=== PATIENT | male | born 1980 | race Caucasian/White ===

== ENCOUNTER 2016-07-08 21:18 | Emergency (ER) | payer SELFPAY ==
[~2016-07-08 21:18] MED LIST: AMOXICILLIN500 MG PO; BACTRIM DS1 TAB OR; BACTRIM DS1 TAB PO; BENADRYL25 MG PO; CEPHALEXIN500 MG PO; CIPRO500 MG OR; KEFLEX500 M1 PO; KEFLEX500 MG OR; LORTAB 1010 MG PO; LORTAB 5/3255 MG PO; LORTAB5 PO; MEDDOSEPAK OR; NAPROSYN500 MG PO; NO HOME MEDS; PERCOCET 5/325M1 TAB OR; PREDNISONE10 MG PO; TRAMADOL HCL50 MG OR; TRIMOX500 MG PO; TYLENOL COL OR; ULTRAM50 M1 OR; ULTRAM50 M1 PO; ULTRAM50 MG PO; [UNRECOGNIZED DRUG - REMARK]
== END 2016-07-08 21:20 | disposition left against medical advice (07) | DRG 951 ==
LOC: ED 21:18 → LWOBS 21:20
DX: Z91.19 Patient's noncompliance with other medical treatment and regimen (principal)

== ENCOUNTER 2016-07-08 21:37 | Emergency (ER) | payer SELFPAY ==
[~2016-07-08] VITALS: Ht 177.8 cm; Wt 96.4 kg
[2016-07-08 23:00] VITALS: BP 130/89
== END 2016-07-08 23:10 | disposition left against medical advice (07) | DRG 951 ==
LOC: ED 21:37 → LWOBS 23:10
DX: Z91.19 Patient's noncompliance with other medical treatment and regimen (principal)

== ENCOUNTER 2017-10-16 05:15 | Emergency (ER) | payer SELFPAY ==
[~2017-10-16] VITALS: Ht 177.8 cm; Wt 68.0 kg
[2017-10-16 06:15] LABS: HEMOGLOBIN 15.1 g/dl (14.0-18.0); IMMATURE GRANULOCYTES 0.9 % (0.0-5.0); MEAN CELL VOLUME 89.8 fL CALC (80.0-100.0); MEAN CORPUSCULAR HGB 30.8 pG CALC (26.0-32.0); MEAN CORPUSCULAR HGB CONC 34.3 g/L CALC (32.0-36.0); NEUT# 5.41 thou/uL (1.82-7.42); RED BLOOD COUNT 4.9 mill/uL (4.70-6.10); RED CELL DISTRI WIDTH 12.6 % (11.5-15.5)
[2017-10-16 06:31] LABS: ALBUMIN 4.1 g/dL (3.2-5.0); ALKALINE PHOSPHATASE 67 u/l (38-126); AMYLASE 85 u/l (30-110); ANION GAP 14 (6-22 (CALC)); BILIRUBIN, TOTAL 0.4 mg/dL (0.0-1.4); BUN 12 mg/dL (9-20); BUN/CREATININE RATIO 18 (12-20 (CALC)); CARBON DIOXIDE 26 mmol/l (22-30); CHLORIDE 104 mmol/l (95-108); CREATININE 0.7 mg/dL (0.7-1.3); GFR > 60 ML/MIN (>=60 (CALC)); GFR FOR AFR.AMER. > 60 ML/MIN (>=60 (CALC)); LIPASE 507 u/l (23-300); POTASSIUM 4.3 mmol/l (3.5-5.1); SGOT/AST 31 u/l (17-59); SGPT/ALT 38 u/l (21-72); SODIUM 140 mmol/l (137-146); TOTAL PROTEIN 6.9 g/dL (6.3-8.2)
[2017-10-16 06:41] LABS: URINE BILIRUBIN - DIPSTICK NEGATIVE (NEGATIVE); URINE BLOOD DIPSTICK NEGATIVE (NEGATIVE); URINE CLARITY CLEAR; URINE COLOR YELLOW; URINE GLUCOSE - DIPSTICK NEGATIVE (NEGATIVE); URINE KETONE NEGATIVE (NEGATIVE); URINE LEUK ESTERASE NEGATIVE (NEGATIVE); URINE NITRITE - DIPSTICK NEGATIVE (Negative); URINE PROTEIN - DIPSTICK NEGATIVE (NEG-TRACE); URINE SPECIFIC GRAVITY <=1.005; URINE UROBILINOGEN - DIPSTICK 0.2 E.U./dL (0.2)
[2017-10-16] MEDS ORDERED: ONDANSETRON4 MG PO (07:38)
[2017-10-16] MEDS ORDERED: BACTRIM DS1 TAB PO (07:38)
[2017-10-16 07:48] VITALS: BP 127/72
== END 2017-10-16 08:33 | disposition home or self-care (01) | DRG 440 ==
LOC: ED 05:15
PROVIDERS: Emergency Medicine
DX: K85.90 Acute pancreatitis without necrosis or infection, unspecified (principal); L03.012 Cellulitis of left finger
CPT/HCPCS: Q9967; S0164

== ENCOUNTER 2017-12-21 16:07 | Emergency (ER) | payer SELFPAY ==
[~2017-12-21] VITALS: Ht 177.8 cm; Wt 69.0 kg
[~2017-12-21 16:07] MED LIST changes: +ONDANSETRON4 MG PO
[2017-12-21] MEDS ORDERED: BACTRIM DS1 TAB PO ×2 (16:25→17:04)
[2017-12-21] MEDS ORDERED: CEPHALEXIN500 MG PO (17:04)
[2017-12-21] MEDS ORDERED: MUPIROCIN2 % EX (17:04)
[2017-12-21 17:14] VITALS: BP 153/92
== END 2017-12-21 17:15 | disposition home or self-care (01) | DRG 603 ==
LOC: ED 16:07
DX: L03.113 Cellulitis of right upper limb (principal); B95.61 Methicillin susceptible Staphylococcus aureus infection as the cause of diseases classified elsewhere

== ENCOUNTER 2018-01-08 07:02 | Emergency (ER) | payer SELFPAY ==
[~2018-01-08] VITALS: Ht 177.8 cm; Wt 70.0 kg
[~2018-01-08 07:02] MED LIST changes: +MUPIROCIN2 % EX
[2018-01-08] MEDS ORDERED: TORADOL PO (08:25)
[2018-01-08] MEDS ORDERED: FLEXERIL PO (08:25)
[2018-01-08 08:28] VITALS: BP 122/77
== END 2018-01-08 08:32 | disposition home or self-care (01) | DRG 204 ==
LOC: ED 07:02
DX: R07.81 Pleurodynia (principal); W19.XXXA Unspecified fall, initial encounter

== ENCOUNTER 2019-04-15 | Emergency (ER) | payer SELFPAY ==
[~2019-04-15] MED LIST changes: +FLEXERIL PO; +TORADOL PO
[2019-04-15] MEDS ORDERED: IBUPROFEN600 MG PO (02:18)
[2019-04-15] MEDS ORDERED: ORPHENADRINE100 MG PO (02:18)
== END 2019-04-15 03:28 | disposition home or self-care (01) | DRG 313 ==
DX: R07.89 Other chest pain (principal)

== ENCOUNTER 2020-07-17 18:07 | Emergency (ER) | payer SELFPAY ==
[~2020-07-17 18:07] MED LIST changes: +IBUPROFEN600 MG PO; +ORPHENADRINE100 MG PO
[2020-07-17] MEDS ORDERED: PERCOCET 5/325M1 TAB PO (19:39)
[2020-07-17 19:54] VITALS: BP 128/72
== END 2020-07-17 20:00 | disposition home or self-care (01) | DRG 563 ==
LOC: ED 18:07
PROC: 2W3QX1Z Immobilization of Right Lower Leg using Splint (ICD-10-PCS; principal; 2020-07-17)
DX: S82.51XA Displaced fracture of medial malleolus of right tibia, initial encounter for closed fracture (principal); W20.8XXA Other cause of strike by thrown, projected or falling object, initial encounter; Y92.009 Unspecified place in unspecified non-institutional (private) residence as the place of occurrence of the external cause

== ENCOUNTER 2020-08-22 04:50 | Emergency (ER) | payer SELFPAY ==
[~2020-08-22] VITALS: Ht 177.8 cm; Wt 79.5 kg
[~2020-08-22 04:50] MED LIST changes: +PERCOCET 5/325M1 TAB PO
[2020-08-22] MEDS ORDERED: DOXYCYCL HYC100 MG PO (05:22)
[2020-08-22] MEDS ORDERED: VOLTAREN75 MG PO (05:22)
[2020-08-22] MEDS ORDERED: TRAMADOL HCL50 MG PO (05:22)
[2020-08-22 06:47] VITALS: BP 135/78
== END 2020-08-22 06:48 | disposition home or self-care (01) | DRG 558 ==
LOC: ED 04:50
DX: M71.161 Other infective bursitis, right knee (principal); S82.891D Other fracture of right lower leg, subsequent encounter for closed fracture with routine healing; X58.XXXD Exposure to other specified factors, subsequent encounter

== ENCOUNTER 2020-10-26 19:20 | Emergency (ER) | payer SELFPAY ==
[~2020-10-26 19:20] MED LIST changes: +DOXYCYCL HYC100 MG PO; +TRAMADOL HCL50 MG PO; +VOLTAREN75 MG PO
[2020-10-26] MEDS ORDERED: PENICILLN VK500 MG PO (19:52)
[2020-10-26 19:58] VITALS: BP 143/89
== END 2020-10-26 20:05 | disposition home or self-care (01) | DRG 158 ==
LOC: ED 19:20
DX: K05.10 Chronic gingivitis, plaque induced (principal); M84.68XA Pathological fracture in other disease, other site, initial encounter for fracture; K02.9 Dental caries, unspecified

== ENCOUNTER 2022-02-14 09:06 | Emergency (ER) | payer OTHER ==
[~2022-02-14 09:06] MED LIST changes: +PENICILLN VK500 MG PO
== END 2022-02-14 09:30 | disposition home or self-care (01) | DRG 951 ==
LOC: ED 09:06 → LWOBS 09:30
DX: Z53.21 Procedure and treatment not carried out due to patient leaving prior to being seen by health care provider (principal)

== ENCOUNTER 2022-04-27 04:00 | Emergency (ER) | payer OTHER ==
[~2022-04-27] VITALS: Ht 177.8 cm; Wt 72.7 kg
[2022-04-27 04:53] LABS: BASO% 0.2 % (0-3); EOS% 0.9 % (0-8); HEMATOCRIT 44.1 % (39.0-50.0); HEMOGLOBIN 15.1 g/dl (14.0-18.0); IMMATURE GRANULOCYTES 0.3 % (0.0-5.0); LYMPH% 19.5 % (15-41); MEAN CORPUSCULAR HGB 30.8 pG CALC (26.0-32.0); MEAN CORPUSCULAR HGB CONC 34.2 g/dL CAL (32.0-36.0); MONO% 10.3 % (2-13); NEUT# 7.78 thou/uL (1.82-7.42); NEUT% 68.8 % (42-76); RED BLOOD COUNT 4.9 mill/uL (4.70-6.10)
[2022-04-27 05:09] LABS: ALBUMIN 4.4 g/dL (3.2-5.0); ALKALINE PHOSPHATASE 70 u/l (38-126); ANION GAP 10 (6-22 (CALC)); BILIRUBIN, TOTAL 0.3 mg/dL (0.2-1.3); BUN 13 mg/dL (9-20); BUN/CREATININE RATIO 18 (12-20 (CALC)); CARBON DIOXIDE 26 mmol/l (22-30); CHLORIDE 108 mmol/l (95-108); CREATININE 0.8 mg/dL (0.7-1.3); GFR FOR AFR.AMER. > 60 ML/MIN (>=60 (CALC)); GFR OTHER RACES > 60 ML/MIN (>=60 (CALC)); POTASSIUM 4.2 mmol/l (3.5-5.1); SGOT/AST 37 u/l (17-59); SODIUM 139 mmol/l (137-146)
[2022-04-27] MEDS ORDERED: KEFLEX500 MG PO (05:39)
[2022-04-27] MEDS ORDERED: BACTRIM DS1 TAB PO (05:39)
[2022-04-27] MEDS ORDERED: LORTAB 1010 MG PO (05:39)
[2022-04-27 05:45] VITALS: BP 23/67
== END 2022-04-27 06:02 | disposition home or self-care (01) ==
LOC: ED 04:00
PROVIDERS: Emergency Medicine
DX: S60.462A Insect bite (nonvenomous) of right middle finger, initial encounter (principal); L08.9 Local infection of the skin and subcutaneous tissue, unspecified; B95.61 Methicillin susceptible Staphylococcus aureus infection as the cause of diseases classified elsewhere; W57.XXXA Bitten or stung by nonvenomous insect and other nonvenomous arthropods, initial encounter

== ENCOUNTER 2022-07-17 14:19 | Emergency (ER) | payer OTHER ==
[2022-07-17] VITALS (8 sets, daily range): BP systolic 117–129; BP diastolic 71–90
[~2022-07-17] VITALS: Ht 177.8 cm; Wt 72.0 kg
[~2022-07-17 14:19] MED LIST changes: +KEFLEX500 MG PO
[2022-07-17 14:49] LABS: BASO% 0.4 % (0-3); EOS% 1.3 % (0-8); HEMATOCRIT 44.4 % (39.0-50.0); HEMOGLOBIN 14.7 g/dl (14.0-18.0); IMMATURE GRANULOCYTES 0.1 % (0.0-5.0); LYMPH% 30.3 % (15-41); MEAN CELL VOLUME 90.6 fL CALC (80.0-100.0); MEAN CORPUSCULAR HGB CONC 33.1 g/dL CAL (32.0-36.0); MONO% 9.7 % (2-13); NEUT# 4.16 thou/uL (1.82-7.42); NEUT% 58.2 % (42-76); RED BLOOD COUNT 4.9 mill/uL (4.70-6.10); RED CELL DISTRI WIDTH 12.8 % (11.5-15.5)
[2022-07-17 15:02] LABS: ALBUMIN 4.4 g/dL (3.2-5.0); ALKALINE PHOSPHATASE 78 u/l (38-126); ANION GAP 11 (6-22 (CALC)); BILIRUBIN, TOTAL 0.3 mg/dL (0.2-1.3); BUN 20 mg/dL (9-20); BUN/CREATININE RATIO 22 (12-20 (CALC)); CARBON DIOXIDE 28 mmol/l (22-30); CHLORIDE 105 mmol/l (95-108); CREATININE 0.9 mg/dL (0.7-1.3); GFR FOR AFR.AMER. > 60 ML/MIN (>=60 (CALC)); GFR OTHER RACES > 60 ML/MIN (>=60 (CALC)); LIPASE 128 u/l (23-300); POTASSIUM 4.1 mmol/l (3.5-5.1); SGOT/AST 37 u/l (17-59); SODIUM 140 mmol/l (137-146); TOTAL PROTEIN 6.9 g/dL (6.3-8.2)
[2022-07-17 16:12] LABS: URINE BILIRUBIN - DIPSTICK NEGATIVE (NEGATIVE); URINE BLOOD DIPSTICK NEGATIVE (NEGATIVE); URINE COLOR YELLOW; URINE GLUCOSE - DIPSTICK NEGATIVE (NEGATIVE); URINE KETONE NEGATIVE (NEGATIVE); URINE LEUK ESTERASE NEGATIVE (NEGATIVE); URINE NITRITE - DIPSTICK NEGATIVE (Negative); URINE PH 6.5 (4.5-8.0); URINE PROTEIN - DIPSTICK NEGATIVE (NEG-TRACE); URINE UROBILINOGEN - DIPSTICK 0.2 E.U./dL (0.2)
== END 2022-07-17 16:50 | disposition home or self-care (01) ==
LOC: ED 14:19
PROVIDERS: Family Medicine
DX: R07.81 Pleurodynia (principal)

== ENCOUNTER 2022-10-29 23:34 | Emergency (ER) | payer OTHER ==
[~2022-10-29] VITALS: Ht 177.8 cm; Wt 79.5 kg
[2022-10-30 00:15] VITALS: BP 110/82
[2022-10-30 02:05] VITALS: BP 110/82
== END 2022-10-30 02:07 | disposition home or self-care (01) ==
LOC: ED 23:34
DX: S61.214A Laceration without foreign body of right ring finger without damage to nail, initial encounter (principal); W25.XXXA Contact with sharp glass, initial encounter

== ENCOUNTER 2022-12-26 01:32 | Emergency (ER) | payer OTHER ==
[~2022-12-26] VITALS: Ht 177.8 cm; Wt 77.0 kg
[2022-12-26] MEDS ORDERED: MOTRIN800 MG PO (02:03)
[2022-12-26 02:30] VITALS: BP 129/95
[2022-12-26 02:58] VITALS: BP 129/95
[2022-12-26] MEDS ORDERED: AMOXICILLIN875 MG PO (03:15)
== END 2022-12-26 02:58 | disposition home or self-care (01) ==
LOC: ED 01:32
DX: K02.9 Dental caries, unspecified (principal)

== ENCOUNTER 2023-05-12 20:49 | Emergency (ER) | payer OTHER ==
[2023-05-12] VITALS (8 sets, daily range): BP systolic 105–121; BP diastolic 50–87
[~2023-05-12] VITALS: Ht 177.8 cm; Wt 72.0 kg
[~2023-05-12 20:49] MED LIST changes: +AMOXICILLIN875 MG PO; +MOTRIN800 MG PO
[2023-05-12] MEDS ORDERED: TYLENOL500 MG PO (22:12)
== END 2023-05-12 23:15 | disposition left against medical advice (07) ==
LOC: ED 20:49
DX: Z53.21 Procedure and treatment not carried out due to patient leaving prior to being seen by health care provider (principal)

== ENCOUNTER 2023-05-15 15:03 | Emergency (ER) | payer OTHER ==
[~2023-05-15 15:03] MED LIST changes: +TYLENOL500 MG PO
== END 2023-05-15 15:12 | disposition left against medical advice (07) | DRG 951 ==
LOC: ED 15:03 → LWOBS 15:12
DX: Z53.21 Procedure and treatment not carried out due to patient leaving prior to being seen by health care provider (principal)

== ENCOUNTER 2023-10-11 17:21 | Emergency (ER) | payer OTHER ==
[~2023-10-11] VITALS: Ht 177.8 cm; Wt 74.0 kg
[2023-10-11 17:32] VITALS: BP 117/71
[2023-10-11] MEDS ORDERED: ZPAK PO (18:19)
== END 2023-10-11 18:34 | disposition home or self-care (01) ==
LOC: ED 17:21
DX: A37.90 Whooping cough, unspecified species without pneumonia (principal)

== ENCOUNTER 2023-11-30 21:10 | Emergency (ER) | payer OTHER ==
[~2023-11-30] VITALS: Ht 177.8 cm; Wt 68.0 kg
[~2023-11-30 21:10] MED LIST changes: +ZPAK PO
[2023-11-30] MEDS ORDERED: DiphenhydrAMINE HCL 50 MG/ML SDV IV ONE (21:40)
[2023-11-30] MEDS ORDERED: SODIUM CHLORIDE 0.9% 1,000 ML IV ONE (21:40)
[2023-11-30 21:56] LABS: BASO% 0.6 % (0-3); EOS% 9.9 % (0-8); IMMATURE GRANULOCYTES 0.2 % (0.0-5.0); LYMPH% 21.4 % (15-41); MEAN CELL VOLUME 87.8 fL CALC (80.0-100.0); MEAN CORPUSCULAR HGB 30.5 pG CALC (26.0-32.0); MEAN CORPUSCULAR HGB CONC 34.8 g/dL CAL (32.0-36.0); MONO% 8.9 % (2-13); NEUT# 5.34 thou/uL (1.82-7.42); RED BLOOD COUNT 5.24 mill/uL (4.70-6.10); RED CELL DISTRI WIDTH 12.4 % (11.5-15.5)
[2023-11-30] MEDS ORDERED: LORazepam 2 MG/ML IV ONE (22:05)
[2023-11-30 22:12] LABS: URINE BLOOD DIPSTICK Negative (NEGATIVE); URINE GLUCOSE - DIPSTICK Negative (NEGATIVE); URINE KETONE 40 mg/dL (NEGATIVE); URINE LEUK ESTERASE Negative (NEGATIVE); URINE NITRITE - DIPSTICK Negative (Negative); URINE PROTEIN - DIPSTICK Negative (NEG-TRACE); URINE SPECIFIC GRAVITY >=1.030
[2023-11-30 22:13] LABS: URINE COLOR Yellow
[2023-11-30 22:18] LABS: ALBUMIN 4.7 g/dL (3.2-5.0); ALKALINE PHOSPHATASE 74 u/l (38-126); ANION GAP 12 (6-22 (CALC)); BILIRUBIN, TOTAL 0.8 mg/dL (0.2-1.3); BUN 14 mg/dL (9-20); BUN/CREATININE RATIO 16 (12-20 (CALC)); CARBON DIOXIDE 24 mmol/l (22-30); CHLORIDE 108 mmol/l (95-108); CREATININE 0.8 mg/dL (0.7-1.3); ESTIMATED GFR 114 ML/MIN (>=90 (CALC)); ETHYL ALCOHOL 0 mg/dl (0-30); POTASSIUM 3.6 mmol/l (3.5-5.1); SGOT/AST 33 u/l (17-59); SODIUM 141 mmol/l (137-146); TOTAL PROTEIN 7.6 g/dL (6.3-8.2)
[2023-11-30 23:22] VITALS: BP 131/92
== END 2023-11-30 23:22 | disposition home or self-care (01) ==
LOC: ED 21:10
PROVIDERS: Family Medicine
DX: T43.651A Poisoning by methamphetamines accidental (unintentional), initial encounter (principal); R20.2 Paresthesia of skin; R42 Dizziness and giddiness; R53.1 Weakness; R61 Generalized hyperhidrosis; F12.99 Cannabis use, unspecified with unspecified cannabis-induced disorder; Z20.822 Contact with and (suspected) exposure to COVID-19
CPT/HCPCS: J2060